=== PATIENT | male | born 1955 | race Caucasian/White ===

== ENCOUNTER 2018-02-26 22:47 | Emergency (ER) | payer OTHER ==
[2018-02-26 23:43] VITALS: BP 107/64
[2018-02-27] MEDS ORDERED: LIDOCAINE 1% INJ-PF (10 MG/ML) 30 ML SDV INJ ONE (01:07)
--- NOTE | 2018-02-27 01:49 | RADIOLOGY REPORT (SQ) ---
EXAM DESCRIPTION: CLINICAL HISTORY: 62 years ,Male injury 2,3 and 4th digits COMPARISON: None. TECHNIQUE: RIGHT hand, Three view FINDINGS: No acute fractures or dislocations are identified. No osseous destructive lesions. No radiopaque foreign object noted. IMPRESSION: No acute fracture or dislocation is identified.
[2018-02-27] MEDS ORDERED: IBUPROFEN 600 MG TABLET PO ONE (03:02)
--- NOTE | 2018-02-27 03:06 | ER Document Report ---
ED General - General Chief Complaint: Laceration Stated Complaint: RIGHT MIDDLE FINGER LACERATION Time Seen by Provider: 02/27/18 00:40 Mode of Arrival: Ambulatory Information source: Patient Notes: 62-year-old male patient presents with laceration to his right third digit after he slammed it in a car door just prior to arrival. Patient has an approximately 2 cm avulsion/laceration to the right third digit on the palmar surface. Patient reports that his tetanus is up-to-date as of approximately 1 month ago. Patient reports multiple medical comorbidities however patient denies any history of diabetes. Bleeding is controlled to the laceration at this time. TRAVEL OUTSIDE OF THE [place] IN LAST 30 DAYS: No - Related Data Allergies/Adverse Reactions: Penicillins Allergy (Verified 02/26/18 22:52) Past Medical History - General Information source: Patient - Social History Smoking Status: Current Every Day Smoker Chew tobacco use (# tins/day): Yes Frequency of alcohol use: Rare Drug Abuse: None Lives with: Family Family History: Reviewed & Not Pertinent Patient has suicidal ideation: No Patient has homicidal ideation: No Renal/ Medical History: Denies: Hx Peritoneal Dialysis Review of Systems - Review of Systems Constitutional: No symptoms reported EENT: No symptoms reported Cardiovascular: No symptoms reported Respiratory: No symptoms reported Gastrointestinal: No symptoms reported Genitourinary: No symptoms reported Male Genitourinary: No symptoms reported Musculoskeletal: See HPI Skin: See HPI Hematologic/Lymphatic: No symptoms reported Neurological/Psychological: No symptoms reported Physical Exam - Vital signs Vitals: Temp Pulse Resp BP Pulse Ox 98.0 F 72 22 H 107/64 96 02/26/18 23:41 02/26/18 23:41 02/26/18 23:41 02/26/18 23:41 02/26/18 23:41 - Notes Notes: PHYSICAL EXAMINATION: GENERAL: Well-appearing, well-nourished and in no acute distress. HEAD: Atraumatic, normocephalic. EYES: Pupils equal round and reactive to light, extraocular movements intact, sclera anicteric, conjunctiva are normal. ENT: Nares patent, oropharynx clear without exudates. Moist mucous membranes. NECK: Normal range of motion, supple without lymphadenopathy LUNGS: Breath sounds clear to auscultation bilaterally and equal. No wheezes rales or rhonchi. HEART: Regular rate and rhythm without murmurs ABDOMEN: Soft, nontender, nondistended abdomen. No guarding, no rebound. No masses appreciated. Musculoskeletal: Normal range of motion, no pitting or edema. No cyanosis. NEUROLOGICAL: Cranial nerves grossly intact. Normal speech, normal gait. Normal sensory, motor exams PSYCH: Normal mood, normal affect. SKIN: 2 cm laceration/avulsion to plantar surface of right third digit at the knuckle. Cap refill is less than 3 seconds, positive sensation and movement distal to injury. Patient is able to flex and extend the finger. Course - Re-evaluation Re-evalutation: X-ray of right hand performed to rule out any fractures as patient reports that he slammed his second third and fourth digits into a car door just prior to arrival resulting in a 2 cm laceration. X-ray is negative for any acute findings. Laceration was repaired under sterile technique, see procedure note. Patient will be discharged home on antibiotics and splint will be placed. - Vital Signs Vital signs: Temp Pulse Resp BP Pulse Ox 98.0 F 72 22 H 107/64 96 02/26/18 23:41 02/26/18 23:41 02/26/18 23:41 02/26/18 23:41 02/26/18 23:41 Procedures - Immobilization Right third digit Pre-Proc Neuro Vasc Exam: Normal Immobilizer type: Finger splint (Static) Performed by: PCT - Laceration/Wound Repair Right third digit Wound length (cm): 2 Wound's Depth, Shape: Irregular, Flap Laceration pre-procedure: Sterile PPE donned Anesthetic type: 1% Lidocaine Volume Anesthetic (mLs): 6 Wound explored: Clean Irrigated w/ Saline (mLs): 30 Wound Repaired With: Sutures Suture Size/Type: 5:0, Nylon Layer Closure?: No Post-procedure wound care: Sterile dressing applied, Splint applied Post-procedure NV exam normal: Yes Complications: Yes Discharge - Discharge Clinical Impression: Laceration of right middle finger Qualifiers: Encounter type: initial encounter Damage to nail status: without damage Foreign body presence: without foreign body Qualified Code(s): S61.212A - Laceration without foreign body of right middle finger without damage to nail, initial encounter Condition: Stable Disposition: HOME, SELF-CARE Additional Instructions: Laceration Care Your laceration has been sutured to keep the skin edges aligned during healing. The time of suture removal depends on the nature and location of your cut. Please follow the care instructions the doctor has outlined for you and return for further care, according to the schedule you've been given. Keep the wound and dressing clean. Unless you were told otherwise, you may shower daily, blotting the wound dry with a clean, unused towel. At other times, If the dressing gets wet or blood soaked, remove it and blot the wound dry, then reapply a new dressing. Unless you were instructed otherwise, dressings should be changed at least daily. If any signs of infection occur (swelling, redness, increasing tenderness, red streaks, tender lumps in the armpit or groin above the laceration, or fever) , see the doctor immediately. Doxycycline Doxycycline (Vibramycin, Doryx) is an antibiotic of the tetracycline family. This type of drug is useful for infections of the respiratory tract and genital tract, and is sometimes used for intestinal infections. Unlike most tetracyclines, doxycycline can be taken with food. It is longer acting, and (usually) less prone to side effects than regular tetracycline. Tetracycline antibiotics can stain immature teeth and SHOULD NOT BE TAKEN BY CHILDREN, NURSING MOTHERS, OR WOMEN. Tetracyclines can make you more prone to sunburn. Abdominal cramping, nausea, and diarrhea are occasional side effects. Women may experience vaginal yeast infections. Call the doctor at once if you develop hives, itching, shortness of breath , or lightheadedness. Please return to the emergency department or your primary care provider in 10-12 days for suture removal. Please return earlier if you develop any signs of infection such as increased redness, swelling, foul-smelling drainage or fever. Prescriptions: Doxycycline Hyclate 100 mg PO BID #14 capsule
[2018-02-27] MEDS ORDERED: DOXYCYCLINE HYCLATE 100 MG TABLET PO ONE (03:17)
== END 2018-02-27 03:27 | disposition home or self-care (01) ==
LOC: ER 22:47
PROC: 0HQFXZZ Repair Right Hand Skin, External Approach (ICD-10-PCS; principal; 2018-02-26)
DX: S61.212A Laceration without foreign body of right middle finger without damage to nail, initial encounter (principal); F17.210 Nicotine dependence, cigarettes, uncomplicated; W23.1XXA Caught, crushed, jammed, or pinched between stationary objects, initial encounter; Z88.0 Allergy status to penicillin
CPT/HCPCS: 99283; 73130; 12001; J3490

== ENCOUNTER 2018-03-12 17:16 | Emergency (ER) | payer OTHER ==
[2018-03-12 17:27] VITALS: BP 114/65
--- NOTE | 2018-03-12 18:05 | ER Document Report ---
HPI - HPI Patient complains to provider of: Suture removal right third finger Pain Level: Denies Context: 62-year-old male here for suture removal palmar aspect of third right finger. He does have some scaling of the skin and he was told that he would have some skin that would slough off. There were placed 11 days ago. Past Medical History - General Information source: Patient - Social History Smoking Status: Current Every Day Smoker Frequency of alcohol use: None Drug Abuse: None Lives with: Family Family History: Reviewed & Not Pertinent - Medical History Medical History: Negative Renal/ Medical History: Denies: Hx Peritoneal Dialysis Surgical Hx: Negative Vertical Provider Document - CONSTITUTIONAL Agree With Documented VS: Yes Exam Limitations: No Limitations - INFECTION CONTROL TRAVEL OUTSIDE OF THE [place] IN LAST 30 DAYS: No - MUSCULOSKELETAL/EXTREMETIES Musculoskeletal/Extremeties: [place] - NEURO Level of Consciousness: Awake Motor/Sensory: No Motor Deficit, No Sensory Deficit - DERM Integumentary: Laceration - #7 sutures palmar right third finger Course - Vital Signs Vital signs: Temp Pulse Resp BP Pulse Ox 98.7 F 87 16 114/65 94 03/12/18 17:26 03/12/18 17:26 03/12/18 17:26 03/12/18 17:26 03/12/18 17:26 Discharge - Discharge Clinical Impression: Suture removal Condition: Good Disposition: HOME, SELF-CARE Instructions: Suture Removal Additional Instructions: Return to the emergency room any concerns
== END 2018-03-12 18:31 | disposition home or self-care (01) ==
LOC: ER 17:16
DX: S61.212D Laceration without foreign body of right middle finger without damage to nail, subsequent encounter (principal); X58.XXXD Exposure to other specified factors, subsequent encounter